=== PATIENT | male | born 1945 | race Caucasian/White ===

== ENCOUNTER 2023-04-17 10:10 | Inpatient (IN) ==
--- NOTE | 2023-04-17 10:43 | Emergency Department Note ---
Impression & Plan Occipital stroke, Peripheral visual field defect ED Provider Note NAME: TIESHA HUDSON Jr AGE: 77 SEX: M : 1945 ARRIVES VIA: Walk-In INFORMANT: Patient, ED PROVIDER(S): Víctor Almanza MD CHIEF COMPLAINT: Vision changes MEDICAL DECISION MAKING: Patient presents due to concern for visual field losses after being seen by optometry and noted to have visual field deficits. IV was established blood work is obtained along with a CT of the head and CT angiography of the head and neck were ordered. Patient was also ordered an MRI of the brain. Patient's MRI of the brain does show cytotoxic edema with associated left occipital infarct. I did speak with on-call neurologist Dr. Pretty stated that he was concerned about the possibility of underlying malignancy. I did initiate a call through the transfer center at [facility] [address] in [place] and updated the patient of the findings. I did speak with a Dr. Recio. After further discussion she believes the likelihood of intervention given the patient's mental status lack of midline shift and other secondary findings to be unlikely. She does not recommend any antiepileptics or steroids. Patient's blood work shows mild leukopenia with a hemoglobin of 14. Platelet count is normal with normal kidney function electrolytes. Urinalysis does not show evidence of blood or infection. CT of the head and CT angiography of the head and neck are otherwise unremarkable with the exception of the noted left occipital infarct. Patient's MR brain also does show other chronic lacunar infarcts. Patient was ordered full dose aspirin. I did speak with the on-call hospitalist service iLlian Guo PA-C and the patient was admitted by Dr. Ramos Prior /Outside records reviewed: Did review a dermatology note from Dr. Amanda from October 2022 which showed inflamed seborrheic keratosis. Differential diagnosis: Stroke, mini stroke, mass, ICH, retinopathy, electrolyte abnormality, dehydration among others were considered. Diagnostics, as interpreted by me: ECG: Sinus bradycardia, rate of 51, normal intervals, left axis deviation, no ST elevations. T wave version in V2. Cardiac monitoring: An order was placed for continuous cardiac monitoring. The monitor shows a rate of 55 with sinus bradycardia rhythm. Patient was placed on pulse oximetry Medical decision rules: None Imaging studies: See below I informally reviewed the patient's MRI which does show left occipital infarct. HPI: Patient presents after being seen by optometry and noted the patient had visual field deficits. The patient states that approximate 5 days ago the patient seem to notice that the right periphery of his right eye vision seem to be less. Patient states that when he was seen today he was noted to have visual deficits in both eyes. The patient does not notice any significant deficits in his left eye. Patient denies any chest pains or shortness of breath no nausea vomiting. Patient states that he does have a known history of heart murmur and has been followed by cardiology and knows that he has a bundle branch block. Patient denies any prior history of stroke or mini stroke. He does relate that preceding his visual changes he has noticed some gait and balance over the last 3 to 4 weeks. Patient does complain of headache and states it is cervical in nature that radiates up through the top of his head. No recent falls or trauma the patient does not take any blood thinning medications. Patient denies any fevers or chills. PAST MEDICAL HISTORY: See Below PAST SURGICAL HISTORY: See Below SOCIAL HISTORY: See Below HOME MEDICATIONS: See Below ALLERGIES: See Below VITALS: See Below PHYSICAL EXAMINATION: GENERAL: NAD, wearing glasses non-toxic. EYE EXAM: Normal conjunctiva. EOM's grossly intact w/o pain. Right-sided visual field deficit at the lower corner of the right eye, no significant field deficits of the left eye, eyes are dilated with stigmata of prior cataract surgery. No periorbital swelling or proptosis. NECK: Supple, no nuchal rigidity, no adenopathy, non-tender. No signs of meningismus. FROM of the neck with good chin to chest and neck extension. No stridor. LUNGS: Clear to auscultation. Normal chest wall mechanics. HEART: NSR, no MRG. ABDOMEN: Abdomen soft, non-tender, no masses, no rebound or guarding. BACK: No CVA TTP. SKIN: No rashes and no bruising. UPPER EXTREMITIES: Upper extremities are grossly normal. LOWER EXTREMITIES: Grossly normal, no edema. NEURO EXAM: A&O x3, cranial nerves II-XII grossly intact, normal speech, moves all 4 extremities. Good [id number]-[id number] and [id number], no sensory deficits, no drift. Past Med/Surg History Medical History BPH (benign prostatic hyperplasia) Inguinal hernia possibly on left Pancreas cyst "BENIGN" Surgical History History of esophagogastroduodenoscopy (EGD) History of left cataract surgery History of tooth extraction Hx of cholecystectomy Hx of colonoscopy with polypectomy Hx of inguinal hernia repair Hx of tonsillectomy Family History Father Coronary heart disease Mother Coronary heart disease Social History Smoking Status: Never smoker Second Hand Exposure: No; Do You Dip or Chew Tobacco: No; Hx Alcohol Use: Yes Alcohol type: beer Hx Substance Use: No Preferred Language: Portuguese Communication Ability: Effective Visual Impairment: No Limitations Supervisor Dumping Required: No Beliefs That Will Affect Care: None Current Living Situation: Spouse Feels Safe at Home: Yes Assistive Devices: Glasses Allergies Allergies Allergy/AdvReac Type Severity Reaction Status Date / Time No Known Allergies Allergy Mild Verified 04/17/23 15:16 Home Meds Home Medications Medication Instructions Recorded Confirmed cholecalciferol (vitamin D3) 25 1,000 unit PO QDL 02/04/19 04/17/23 mcg (1,000 unit) tablet (Vitamin D3) multivitamin 1 tab PO QAM 02/04/19 04/17/23 saw palmetto 500 mg capsule 500 mg PO QAM 02/04/19 04/17/23 latanoprost 0.005 % eye drops 1 drp ophthalmic (eye) PM 09/07/20 04/17/23 Results & Data (ED) Vital Signs Vital Signs - 24 hr 04/17/23 10:11 04/17/23 11:07 04/17/23 11:34 Temperature 36.5 C Temperature Source Temporal Artery Scan Pulse Rate 55 L 57 L 51 L Pulse Rate [Apical] Pulse Rate from SpO2 Sensor 51 L Pulse Rhythm Regular Respiratory Rate 16 16 18 Respiratory Effort / Characteristics Non-Labored Spontaneous Respiratory Depth Normal Respiratory Pattern Regular Blood Pressure 176/84 H Blood Pressure [Right Arm] Blood Pressure Mean 114 Blood Pressure Mean [Right Arm] Pulse Oximetry 98 98 98 Oxygen Delivery Method Room Air Room Air Sepsis Recent Fever Within 48 Hours No Sepsis New/Unexplained Change in Mental Status No Sepsis Action Taken by Nursing No Action Required 04/17/23 11:35 04/17/23 11:35 04/17/23 12:00 Temperature Temperature Source Pulse Rate 53 L Pulse Rate [Apical] Pulse Rate from SpO2 Sensor 52 L Pulse Rhythm Respiratory Rate 18 Respiratory Effort / Characteristics Respiratory Depth Respiratory Pattern Blood Pressure 154/78 H 150/84 H Blood Pressure [Right Arm] Blood Pressure Mean 112 111 Blood Pressure Mean [Right Arm] Pulse Oximetry 99 Oxygen Delivery Method Sepsis Recent Fever Within 48 Hours Sepsis New/Unexplained Change in Mental Status Sepsis Action Taken by Nursing 04/17/23 12:00 04/17/23 12:30 04/17/23 12:30 Temperature Temperature Source Pulse Rate 52 L 49 L Pulse Rate [Apical] Pulse Rate from SpO2 Sensor 52 L 49 L Pulse Rhythm Respiratory Rate 14 13 Respiratory Effort / Characteristics Respiratory Depth Respiratory Pattern Blood Pressure 162/81 H Blood Pressure [Right Arm] Blood Pressure Mean 119 Blood Pressure Mean [Right Arm] Pulse Oximetry 99 99 Oxygen Delivery Method Sepsis Recent Fever Within 48 Hours Sepsis New/Unexplained Change in Mental Status Sepsis Action Taken by Nursing 04/17/23 14:09 04/17/23 15:05 04/17/23 16:26 Temperature Temperature Source Pulse Rate 53 L Pulse Rate [Apical] 50 L 52 L Pulse Rate from SpO2 Sensor Pulse Rhythm Respiratory Rate 19 19 Respiratory Effort / Characteristics Respiratory Depth Normal Respiratory Pattern Blood Pressure Blood Pressure [Right Arm] 151/87 H 151/82 H Blood Pressure Mean Blood Pressure Mean [Right Arm] 108 105 Pulse Oximetry 99 98 Oxygen Delivery Method Room Air Room Air Sepsis Recent Fever Within 48 Hours Sepsis New/Unexplained Change in Mental Status Sepsis Action Taken by Correction Medications Current Medication List: was personally reviewed by me Laboratory Data Attestation: I reviewed the patient's lab results. 04/17/23 11:27 04/17/23 11:27 Lab Results 04/17/23 04/17/23 04/17/23 Range/Units 11:27 11:27 11:27 WBC 4.37 L (4.8-10.8) K/ul RBC 4.44 L (4.70-6.10) M/uL Hgb 14.3 (14.0-18.0) g/dl Hct 41.1 L (42.0-52.0) % MCV 92.6 (80.0-100.0) fL MCH 32.2 (25.0-34.0) pg MCHC 34.8 (32.0-36.0) g/dL RDW Std Deviation 42.2 (36.4-46.3) fL RDW Coeff of Justin 12.4 (11.5-14.5) % Plt Count 161 (130-400) K/uL MPV 12.6 H (9.4-12.4) fL Immature Gran % (Auto) 0.2 % Neut % (Auto) 72.8 % Lymph % (Auto) 18.1 % [place] % (Auto) 7.3 % Eos % (Auto) 0.5 % Baso % (Auto) 1.1 % Neut # (Auto) 3.18 (1.40-6.50) K/uL Lymph # (Auto) 0.79 L (1.2-3.4) K/uL [place] # (Auto) 0.32 (0.11-0.59) K/uL Eos # (Auto) 0.02 (0-0.50) K/uL Baso # (Auto) 0.05 (0-0.2) K/uL Immature Gran # (Auto) 0.01 (0.01-0.20) K/uL Sodium 137 (136-145) mmol/L Potassium 4.3 (3.5-5.1) mmol/L Chloride 105 (98-107) mmol/L Carbon Dioxide 27 (21-32) mmol/L Anion Gap 5 (3-11) BUN 13 (6-23) mg/dl Creatinine 0.75 (0.6-1.4) mg/dl Est Cr Clr Drug Dosing 76.9 ml/min Est GFR ( Amer) 101.1 ml/min Est GFR (Non-Af Amer) 87.2 ml/min BUN/Creatinine Ratio 17.3 (10-20) Glucose 91 (70-99(Fasting)) mg/dl Calcium 8.9 (8.6-10.3) mg/dl Total Bilirubin 0.5 (0.2-1.0) mg/dl AST 21 (13-39) U/L ALT 14 (7-52) U/L Alkaline Phosphatase 70 (34-104) U/L Total Protein 6.6 (6.0-8.3) gm/dl Albumin 3.8 (3.4-5.0) gm/dl Globulin 2.8 (2.5-4.0) gm/dl Albumin/Globulin Ratio 1.4 (0.9-2) TSH 5.333 H (0.300-4.500) uIu/ml Free T4 0.72 (0.61-1.60) ng/dl Urine Color Urine Appearance (Clear) Urine pH (4.5-7.5) Ur Specific [place] (1.000-1.030) Urine Protein (Negative) Urine Glucose (UA) (Negative) Urine Ketones (Negative) Urine Blood (Negative) Urine Nitrite (Negative) Urine Bilirubin (Negative) Urine Urobilinogen (Negative) Ur Leukocyte Esterase (Negative) SARS-CoV-2, RNA, NAAT (NEGATIVE) 04/17/23 04/17/23 Range/Units 11:27 11:44 WBC (4.8-10.8) K/ul RBC (4.70-6.10) M/uL Hgb (14.0-18.0) g/dl Hct (42.0-52.0) % MCV (80.0-100.0) fL MCH (25.0-34.0) pg MCHC (32.0-36.0) g/dL RDW Std Deviation (36.4-46.3) fL RDW Coeff of Justin (11.5-14.5) % Plt Count (130-400) K/uL MPV (9.4-12.4) fL Immature Gran % (Auto) % Neut % (Auto) % Lymph % (Auto) % [place] % (Auto) % Eos % (Auto) % Baso % (Auto) % Neut # (Auto) (1.40-6.50) K/uL Lymph # (Auto) (1.2-3.4) K/uL [place] # (Auto) (0.11-0.59) K/uL Eos # (Auto) (0-0.50) K/uL Baso # (Auto) (0-0.2) K/uL Immature Gran # (Auto) (0.01-0.20) K/uL Sodium (136-145) mmol/L Potassium (3.5-5.1) mmol/L Chloride (98-107) mmol/L Carbon Dioxide (21-32) mmol/L Anion Gap (3-11) BUN (6-23) mg/dl Creatinine (0.6-1.4) mg/dl Est Cr Clr Drug Dosing ml/min Est GFR ( Amer) ml/min Est GFR (Non-Af Amer) ml/min BUN/Creatinine Ratio (10-20) Glucose (70-99(Fasting)) mg/dl Calcium (8.6-10.3) mg/dl Total Bilirubin (0.2-1.0) mg/dl AST (13-39) U/L ALT (7-52) U/L Alkaline Phosphatase (34-104) U/L Total Protein (6.0-8.3) gm/dl Albumin (3.4-5.0) gm/dl Globulin (2.5-4.0) gm/dl Albumin/Globulin Ratio (0.9-2) TSH (0.300-4.500) uIu/ml Free T4 (0.61-1.60) ng/dl Urine Color Dark Yellow Urine Appearance Clear (Clear) Urine pH 7.5 (4.5-7.5) Ur Specific [place] 1.012 (1.000-1.030) Urine Protein Negative (Negative) Urine Glucose (UA) Negative (Negative) Urine Ketones Negative (Negative) Urine Blood Negative (Negative) Urine Nitrite Negative (Negative) Urine Bilirubin Negative (Negative) Urine Urobilinogen Negative (Negative) Ur Leukocyte Esterase Negative (Negative) SARS-CoV-2, RNA, NAAT NEGATIVE (NEGATIVE) Administered Medications Discontinued Medications Dexamethasone Sodium Phosphate (DexamethasonePf 10 Mg/Ml Vial) 10 mg IV NOW ONE Stop: 04/17/23 14:10 Last Admin: 04/17/23 14:24 Dose: 10 mg Documented By: RSL Ioversol (Optiray 320 500ml) 109 ml IV ONCE ONE Stop: 04/17/23 14:01 Last Admin: 04/17/23 13:55 Dose: 109 ml Documented By: BRM Imaging Data Radiologist's Impression: Brain MRI 04/17/23 11:07 MR brain wo con HISTORY: 77 years-old Male bilateral visual field loss, more prom R temporal acute to subacute vision loss COMPARISON: None TECHNIQUE: Multiplanar multisequence MRI of the brain was obtained without the use of IV contrast. FINDINGS: Areas of restricted diffusion within the left occipital lobe measure up to 3.4 x 2.8 cm on image 12 series 4 with smaller adjacent areas of restricted diffusion extending into the optic radiations. Associated increased T2/FLAIR signal within this distribution measures up to 5.8 cm in craniocaudal dimension, image 25 series 6. Decreased signal on the ADC map. Midline structures appear unremarkable. Ill-defined cortically based areas of increased T1 signal also noted within this distribution. No midline shift, abnormal extra axial collection, hydrocephalus or intra-axial mass identified. Subcentimeter chronic lacunar infarcts of the left cerebellum. Mild scattered T2/FLAIR hyperintense foci throughout the white matter. Mild involutional changes. Cerebral venous sinuses and major arterial flow voids appear patent. Prior bilateral lens repair. The mastoid air cells and paranasal sinuses are generally clear. IMPRESSION: 1. Left occipital lobe infarct with associated cytotoxic edema measuring up to 5.8 cm in greatest dimension. The aging of this infarct is likely less than 2 weeks old with subtle areas of laminar necrosis/petechial hemorrhage. 2. Involutional changes with chronic microvascular ischemic disease. 3. Chronic subcentimeter left cerebellar lacunar infarcts. ACT 112: Negative or not required by law. The above report was generated using voice recognition software. It may contain grammatical, syntax or spelling errors. Electronically signed by: Landon Biggs M.D. 04/17/2023 2:01 PM Chest X-Ray 04/17/23 11:07 XR chest 1V portable CLINICAL HISTORY: weakness TECHNIQUE: Single frontal radiograph of the chest was obtained. Comparison: None available at the time of this dictation. FINDINGS: No lines and tubes are seen. Cardiomegaly is noted. The lungs are clear. No evidence of pleural effusion or pneumothorax. IMPRESSION: No acute chest disease. ACT 112: Negative or not required by law. Electronically signed by: Tom Caldera M.D. 04/17/2023 11:[address] 04/17/23 11:[address] OF THE BRAIN; CT ANGIOGRAM OF THE BRAIN; CT ANGIOGRAM OF THE NECK CLINICAL HISTORY: Bilateral visual field deficit. Loss of balance. COMPARISON STUDY: MRI of the brain dated 04/17/2023. TECHNIQUE: Unenhanced axial CT scan of the brain is performed. Subsequently, following the IV administration of 109 of [address] 320, CT angiogram of the head and neck was performed from the aortic arch to the vertex. Images are reviewed in the axial, sagittal, and coronal planes. 3-D MIPS images are created and assessed. IV contrast was administered without complication. All measurements were calculated based on NASCET criteria. A dose lowering technique was utilized adhering to the principles of ALARA. CT DOSE: 1132.55 mGy.cm FINDINGS: Brain parenchyma: There is age-related involutional change noting mild subcortical and periventricular microcatheter hepatic disease. Loss of lópez- white matter differentiation is again seen in the left occipital lobe consistent with a subacute infarct. This water's better assessed on today's MRI. No additional foci of acute ischemia are suspected. There is no hemorrhage or midline shift. There is no evidence of enhancing mass lesion on the angiogram phase images. The ventricles, sulci, and cisterns are prominent secondary to visual changes. No extra-axial fluid collection is seen. Mineralization is noted in the basal ganglia. A small chronic lacunar infarct is noted in the left cerebellar hemisphere. Thoracic aorta: Visualized portions of the thoracic aorta are normal in caliber. The aortic arch demonstrates standard 3-vessel anatomy. Right carotid arterial system: The right common carotid artery is widely patent, as are the right internal and external carotid arteries. Calcified plaque is seen in the carotid bulb. Left carotid arterial system: The left common carotid artery is widely patent, as of the left internal and external carotid arteries. Mild calcified plaque is noted in the carotid bulb. Vertebral arteries: The vertebral arteries are widely patent bilaterally and codominant. Subclavian arteries: Patent bilaterally Atherosclerotic plaque is noted left subclavian artery below the thoracic outlet. Intracranial vasculature: There is moderate atherosclerotic calcification of the cavernous carotid arteries. The internal carotid arteries are patent at the skull base, as are the anterior and middle cerebral arteries bilaterally. The vertebrobasilar system and posterior cerebral arteries are patent. The vertebral arteries are codominant. There is no aneurysm, high-grade stenosis, or focal vessel cut off seen throughout the intracranial circulation. Jugular veins: Patent bilaterally. Dural sinuses: Patent. Lung apices: Partially visualized upper lobe lung parenchyma appears clear. Soft tissues: The visualized pharyngeal soft tissues are normal in appearance noting angiographic phase technique. The oropharyngeal airway appears widely patent. A calcified sialolith is noted in the left parotid gland. The salivary and thyroid glands are otherwise normal in appearance. No cervical lymphadenopathy is seen. Skeletal structures: The skeletal structures are osteopenic. The calvarium appears intact. The cervical spine is maintained noting mild multilevel spondylosis. No lytic or blastic lesion is seen. Orbits: The bony orbits are intact. Orbital contents are normal as visualized noting bilateral ocular lens implants. Sinuses and mastoids: There is trace mucosal thickening within the maxillary antra. A 2.3 cm retention cyst is noted on the right. The remaining paranasal sinuses are clear. The mastoid air cells are well pneumatized. IMPRESSION: 1. A subacute left occipital lobe infarct is again noted. 2. No additional foci of acute ischemia are suspected. There is no hemorrhage or midline shift. 3. Unremarkable CT angiogram of the brain. 4. Unremarkable CT angiogram of the neck. ACT 112: Negative or not required by law. Electronically signed by: Ousmane Odonnell M.D. 04/17/2023 2:17 PM Head CTA 04/17/23 11:[address] OF THE BRAIN; CT ANGIOGRAM OF THE BRAIN; CT ANGIOGRAM OF THE NECK CLINICAL HISTORY: Bilateral visual field deficit. Loss of balance. COMPARISON STUDY: MRI of the brain dated 04/17/2023. TECHNIQUE: Unenhanced axial CT scan of the brain is performed. Subsequently, following the IV administration of 109 of [address] 320, CT angiogram of the head and neck was performed from the aortic arch to the vertex. Images are reviewed in the axial, sagittal, and coronal planes. 3-D MIPS images are created and assessed. IV contrast was administered without complication. All measurements were calculated based on NASCET criteria. A dose lowering technique was utilized adhering to the principles of ALARA. CT DOSE: 1132.55 mGy.cm FINDINGS: Brain parenchyma: There is age-related involutional change noting mild subcortical and periventricular microcatheter hepatic disease. Loss of lópez- white matter differentiation is again seen in the left occipital lobe consistent with a subacute infarct. This water's better assessed on today's MRI. No additional foci of acute ischemia are suspected. There is no hemorrhage or midline shift. There is no evidence of enhancing mass lesion on the angiogram phase images. The ventricles, sulci, and cisterns are prominent secondary to visual changes. No extra-axial fluid collection is seen. Mineralization is noted in the basal ganglia. A small chronic lacunar infarct is noted in the left cerebellar hemisphere. Thoracic aorta: Visualized portions of the thoracic aorta are normal in caliber. The aortic arch demonstrates standard 3-vessel anatomy. Right carotid arterial system: The right common carotid artery is widely patent, as are the right internal and external carotid arteries. Calcified plaque is seen in the carotid bulb. Left carotid arterial system: The left common carotid artery is widely patent, as of the left internal and external carotid arteries. Mild calcified plaque is noted in the carotid bulb. Vertebral arteries: The vertebral arteries are widely patent bilaterally and codominant. Subclavian arteries: Patent bilaterally Atherosclerotic plaque is noted left subclavian artery below the thoracic outlet. Intracranial vasculature: There is moderate atherosclerotic calcification of the cavernous carotid arteries. The internal carotid arteries are patent at the skull base, as are the anterior and middle cerebral arteries bilaterally. The vertebrobasilar system and posterior cerebral arteries are patent. The vertebral arteries are codominant. There is no aneurysm, high-grade stenosis, or focal vessel cut off seen throughout the intracranial circulation. Jugular veins: Patent bilaterally. Dural sinuses: Patent. Lung apices: Partially visualized upper lobe lung parenchyma appears clear. Soft tissues: The visualized pharyngeal soft tissues are normal in appearance noting angiographic phase technique. The oropharyngeal airway appears widely patent. A calcified sialolith is noted in the left parotid gland. The salivary and thyroid glands are otherwise normal in appearance. No cervical lymphadenopathy is seen. Skeletal structures: The skeletal structures are osteopenic. The calvarium appears intact. The cervical spine is maintained noting mild multilevel spondylosis. No lytic or blastic lesion is seen. Orbits: The bony orbits are intact. Orbital contents are normal as visualized noting bilateral ocular lens implants. Sinuses and mastoids: There is trace mucosal thickening within the maxillary antra. A 2.3 cm retention cyst is noted on the right. The remaining paranasal sinuses are clear. The mastoid air cells are well pneumatized. IMPRESSION: 1. A subacute left occipital lobe infarct is again noted. 2. No additional foci of acute ischemia are suspected. There is no hemorrhage or midline shift. 3. Unremarkable CT angiogram of the brain. 4. Unremarkable CT angiogram of the neck. ACT 112: Negative or not required by law. Electronically signed by: Ousmane Odonnell M.D. 04/17/2023 2:17 PM Neck CTA 04/17/23 11:[address] OF THE BRAIN; CT ANGIOGRAM OF THE BRAIN; CT ANGIOGRAM OF THE NECK CLINICAL HISTORY: Bilateral visual field deficit. Loss of balance. COMPARISON STUDY: MRI of the brain dated 04/17/2023. TECHNIQUE: Unenhanced axial CT scan of the brain is performed. Subsequently, following the IV administration of 109 of [address] 320, CT angiogram of the head and neck was performed from the aortic arch to the vertex. Images are reviewed in the axial, sagittal, and coronal planes. 3-D MIPS images are created and assessed. IV contrast was administered without complication. All measurements were calculated based on NASCET criteria. A dose lowering technique was utilized adhering to the principles of ALARA. CT DOSE: 1132.55 mGy.cm FINDINGS: Brain parenchyma: There is age-related involutional change noting mild subcortical and periventricular microcatheter hepatic disease. Loss of lópez- white matter differentiation is again seen in the left occipital lobe consistent with a subacute infarct. This water's better assessed on today's MRI. No additional foci of acute ischemia are suspected. There is no hemorrhage or midline shift. There is no evidence of enhancing mass lesion on the angiogram phase images. The ventricles, sulci, and cisterns are prominent secondary to visual changes. No extra-axial fluid collection is seen. Mineralization is noted in the basal ganglia. A small chronic lacunar infarct is noted in the left cerebellar hemisphere. Thoracic aorta: Visualized portions of the thoracic aorta are normal in caliber. The aortic arch demonstrates standard 3-vessel anatomy. Right carotid arterial system: The right common carotid artery is widely patent, as are the right internal and external carotid arteries. Calcified plaque is seen in the carotid bulb. Left carotid arterial system: The left common carotid artery is widely patent, as of the left internal and external carotid arteries. Mild calcified plaque is noted in the carotid bulb. Vertebral arteries: The vertebral arteries are widely patent bilaterally and codominant. Subclavian arteries: Patent bilaterally Atherosclerotic plaque is noted left subclavian artery below the thoracic outlet. Intracranial vasculature: There is moderate atherosclerotic calcification of the cavernous carotid arteries. The internal carotid arteries are patent at the skull base, as are the anterior and middle cerebral arteries bilaterally. The vertebrobasilar system and posterior cerebral arteries are patent. The vertebral arteries are codominant. There is no aneurysm, high-grade stenosis, or focal vessel cut off seen throughout the intracranial circulation. Jugular veins: Patent bilaterally. Dural sinuses: Patent. Lung apices: Partially visualized upper lobe lung parenchyma appears clear. Soft tissues: The visualized pharyngeal soft tissues are normal in appearance noting angiographic phase technique. The oropharyngeal airway appears widely patent. A calcified sialolith is noted in the left parotid gland. The salivary and thyroid glands are otherwise normal in appearance. No cervical lymphadenopathy is seen. Skeletal structures: The skeletal structures are osteopenic. The calvarium appears intact. The cervical spine is maintained noting mild multilevel spondylosis. No lytic or blastic lesion is seen. Orbits: The bony orbits are intact. Orbital contents are normal as visualized noting bilateral ocular lens implants. Sinuses and mastoids: There is trace mucosal thickening within the maxillary antra. A 2.3 cm retention cyst is noted on the right. The remaining paranasal sinuses are clear. The mastoid air cells are well pneumatized. IMPRESSION: 1. A subacute left occipital lobe infarct is again noted. 2. No additional foci of acute ischemia are suspected. There is no hemorrhage or midline shift. 3. Unremarkable CT angiogram of the brain. 4. Unremarkable CT angiogram of the neck. ACT 112: Negative or not required by law. Electronically signed by: Ousmane Odonnell M.D. 04/17/2023 2:17 PM Discharge Plan Visit Data Chief Complaint: Visual Disturbance Stated Complaint: PERIPHERAL VISION LOSS, BALANCE ISSUES ED Provider: Víctor Almanza Discharge Problem: Occipital stroke, Peripheral visual field defect Forms Stand Alone Forms: [facility] [employer] Prescriptions Prescriptions: No Action latanoprost 0.005 % Drops 1 drp OPHTHALMIC (EYE) PM multivitamin Tablet 1 tab PO QAM saw palmetto 500 mg Capsule 500 mg PO QAM cholecalciferol (vitamin D3) [Vitamin D3] 1,000 unit Tablet 1,000 unit PO QDL Referrals Referrals: Dixon Douglas MD [Outside Practitioners] -
--- NOTE | 2023-04-17 11:42 | XRay Report ---
XR chest 1V portable CLINICAL HISTORY: weakness TECHNIQUE: Single frontal radiograph of the chest was obtained. Comparison: None available at the time of this dictation. FINDINGS: No lines and tubes are seen. Cardiomegaly is noted. The lungs are clear. No evidence of pleural effus ion or pneumothorax. IMPRESSION: No acute chest disease. ACT 112: Negative or not required by law. Electronically signed by: Tom Caldera M.D. 04/17/2023 11:40 AM
[2023-04-17 11:46] LABS: Appearance Urine Clear (Clear); Bilirubin Urine Negative (Negative); Blood Urine Negative (Negative); Color Urine Dark Yellow; Glucose Urine UA Negative (Negative); Ketones Urine Negative (Negative); Leukocyte Esterase Urine Negative (Negative); Nitrite Urine Negative (Negative); Protein Urine Negative (Negative); Specific Gravity Urine 1.012 (1.000-1.030); Urobilinogen Urine Negative (Negative); pH Urine 7.5 (4.5-7.5)
[2023-04-17 12:04] LABS: Basophils # (auto) 0.05 K/uL (0-0.2); Basophils % (auto) 1.1 %; Eosinophils # (auto) 0.02 K/uL (0-0.50); Eosinophils % (auto) 0.5 %; Hematocrit (blood only) 41.1 % (42.0-52.0); Hemoglobin 14.3 g/dl (14.0-18.0); Immature Granulocytes # (auto) 0.01 K/uL (0.01-0.20); Immature Granulocytes % (auto) 0.2 %; Lymphocytes # (auto) 0.79 K/uL (1.2-3.4); Lymphocytes % (auto) 18.1 %; Mean Corpuscular Hemoglobin 32.2 pg (25.0-34.0); Mean Corpuscular Hgb Conc 34.8 g/dL (32.0-36.0); Mean Corpuscular Volume 92.6 fL (80.0-100.0); Mean Platelet Volume 12.6 fL (9.4-12.4); Monocytes # (auto) 0.32 K/uL (0.11-0.59); Monocytes % (auto) 7.3 %; Neutrophils # (auto) 3.18 K/uL (1.40-6.50); Neutrophils % (auto) 72.8 %; Platelet Count 161 K/uL (130-400); RDW Coefficient of Variation 12.4 % (11.5-14.5); RDW Standard Deviation 42.2 fL (36.4-46.3); Red Blood Count 4.44 M/uL (4.70-6.10); White Blood Count 4.37 K/ul (4.8-10.8)
[2023-04-17 12:17] LABS: Albumin Globulin Ratio 1.4 (0.9-2); Albumin Level 3.8 gm/dl (3.4-5.0); BUN Creatinine Ratio 17.3 (10-20); Bilirubin,Total 0.5 mg/dl (0.2-1.0); Calcium 8.9 mg/dl (8.6-10.3); Creatinine Clr Calc Pharmacy 76.9 ml/min; Est GFR (African American) 101.1 ml/min; Est GFR (Non-African American) 87.2 ml/min; Globulin 2.8 gm/dl (2.5-4.0); Potassium 4.3 mmol/L (3.5-5.1); Total Protein 6.6 gm/dl (6.0-8.3)
[2023-04-17 12:24] LABS: Thyroid Stimulating Hormone 5.333 uIu/ml (0.300-4.500)
[2023-04-17 12:57] LABS: T4 Free Thyroxine 0.72 ng/dl (0.61-1.60)
[2023-04-17] MEDS ORDERED: OPTIRAY 320 500ml IV ONE (14:00)
--- NOTE | 2023-04-17 14:02 | Magnetic Resonance Report ---
MR brain wo con HISTORY: 77 years-old Male bilateral visual field loss, more prom R temporal acute to subacute visio n loss COMPARISON: None TECHNIQUE: Multiplanar multisequence MRI of the brain was obtained without the use of IV contrast. FINDINGS: Areas of restricted diffusion within the left occipital lobe measure up to 3.4 x 2.8 cm on image 12 s eries 4 with smaller adjacent areas of restricted diffusion extending into the optic radiations. Asso ciated increased T2/FLAIR signal within this distribution measures up to 5.8 cm in craniocaudal dimen adelina, image 25 series 6. Decreased signal on the ADC map. Midline structures appear unremarkable. Ill -defined cortically based areas of increased T1 signal also noted within this distribution. No midline shift, abnormal extra axial collection, hydrocephalus or intra-axial mass identified. Subc entimeter chronic lacunar infarcts of the left cerebellum. Mild scattered T2/FLAIR hyperintense foci throughout the white matter. Mild involutional changes. Cerebral venous sinuses and major arterial flow voids appear patent. Prior bilateral lens repair. The mastoid air cells and paranasal sinuses are generally clear. IMPRESSION: 1. Left occipital lobe infarct with associated cytotoxic edema measuring up to 5.8 cm in greatest dim ension. The aging of this infarct is likely less than 2 weeks old with subtle areas of laminar necros is/petechial hemorrhage. 2. Involutional changes with chronic microvascular ischemic disease. 3. Chronic subcentimeter left cerebellar lacunar infarcts. ACT 112: Negative or not required by law. The above report was generated using voice recognition software. It may contain grammatical, syntax o r spelling errors. Electronically signed by: Landon Biggs M.D. 04/17/2023 2:01 PM
[2023-04-17] MEDS ORDERED: dexAMETHasone**PF** 10 MG/ML VIAL IV ONE (14:09)
--- NOTE | 2023-04-17 14:18 | CT Scan Report ---
UNENHANCED CT OF THE BRAIN; CT ANGIOGRAM OF THE BRAIN; CT ANGIOGRAM OF THE NECK CLINICAL HISTORY: Bilateral visual field deficit. Loss of balance. COMPARISON STUDY: MRI of the brain dated 04/17/2023. TECHNIQUE: Unenhanced axial CT scan of the brain is performed. Subsequently, following the IV adminis tration of 109 of [address] 320, CT angiogram of the head and neck was performed from the aortic arch t o the vertex. Images are reviewed in the axial, sagittal, and coronal planes. 3-D MIPS images are cre ated and assessed. IV contrast was administered without complication. All measurements were calculate d based on NASCET criteria. A dose lowering technique was utilized adhering to the principles of ALA RA. CT DOSE: 1132.55 mGy.cm FINDINGS: Brain parenchyma: There is age-related involutional change noting mild subcortical and periventricula r microcatheter hepatic disease. Loss of lópez-white matter differentiation is again seen in the left occipital lobe consistent with a subacute infarct. This water's better assessed on today's MRI. No ad ditional foci of acute ischemia are suspected. There is no hemorrhage or midline shift. There is no e vidence of enhancing mass lesion on the angiogram phase images. The ventricles, sulci, and cisterns a re prominent secondary to visual changes. No extra-axial fluid collection is seen. Mineralization is noted in the basal ganglia. A small chronic lacunar infarct is noted in the left cerebellar hemispher e. Thoracic aorta: Visualized portions of the thoracic aorta are normal in caliber. The aortic arch demo nstrates standard 3-vessel anatomy. Right carotid arterial system: The right common carotid artery is widely patent, as are the right int ernal and external carotid arteries. Calcified plaque is seen in the carotid bulb. Left carotid arterial system: The left common carotid artery is widely patent, as of the left interna l and external carotid arteries. Mild calcified plaque is noted in the carotid bulb. Vertebral arteries: The vertebral arteries are widely patent bilaterally and codominant. Subclavian arteries: Patent bilaterally Atherosclerotic plaque is noted left subclavian artery below the thoracic outlet. Intracranial vasculature: There is moderate atherosclerotic calcification of the cavernous carotid ar teries. The internal carotid arteries are patent at the skull base, as are the anterior and middle ce rebral arteries bilaterally. The vertebrobasilar system and posterior cerebral arteries are patent. T he vertebral arteries are codominant. There is no aneurysm, high-grade stenosis, or focal vessel cut off seen throughout the intracranial circulation. Jugular veins: Patent bilaterally. Dural sinuses: Patent. Lung apices: Partially visualized upper lobe lung parenchyma appears clear. Soft tissues: The visualized pharyngeal soft tissues are normal in appearance noting angiographic pha se technique. The oropharyngeal airway appears widely patent. A calcified sialolith is noted in the l eft parotid gland. The salivary and thyroid glands are otherwise normal in appearance. No cervical ly mphadenopathy is seen. Skeletal structures: The skeletal structures are osteopenic. The calvarium appears intact. The cervic al spine is maintained noting mild multilevel spondylosis. No lytic or blastic lesion is seen. Orbits: The bony orbits are intact. Orbital contents are normal as visualized noting bilateral ocular lens implants. Sinuses and mastoids: There is trace mucosal thickening within the maxillary antra. A 2.3 cm retentio n cyst is noted on the right. The remaining paranasal sinuses are clear. The mastoid air cells are we ll pneumatized. IMPRESSION: 1. A subacute left occipital lobe infarct is again noted. 2. No additional foci of acute ischemia are suspected. There is no hemorrhage or midline shift. 3. Unremarkable CT angiogram of the brain. 4. Unremarkable CT angiogram of the neck. ACT 112: Negative or not required by law. Electronically signed by: Ousmane Odonnell M.D. 04/17/2023 2:17 PM
--- NOTE | 2023-04-17 16:52 | History & Physical Report ---
Date of Service April 17, 2023 Assessment & Plan (1) Occipital stroke: Plan: 77-year-old male who has significant past medical history of aortic root dilatation, mild mitral regurgitation, hypothyroidism, GERD, BPH, cervical DDD, and bilateral primary open-angle glaucoma who presents to ED secondary to visual changesfor several days with associated difficulties with balance and posterior HERRERA. Seen by optometry outpatient today and noted to have bilateral visual field deficits so referred to the ED for evaluation. Imaging in the ED c/w subacute left occipital lobe infarct with associated cytotoxic edema measuring up to 5.8 cm in greatest dimension (MRI personally reviewed). Received dexamethasone x 1 dose in the ED. ED provider spoke with [place] [facility] [place] potential intervention required that would warrant transfer - provider stated no need for transfer at this time, no need for additional IV steroids or for antiepileptics. Edema all thought secondary to infarct/necrosis. Pt reports a history of frequent PACs as an outpatient and concern for possible PAF previously though never documented. - Admit to PCU - monitor for possible paroxysmal atrial fibrillation as etiology for possible embolic CVA with hx of frequent PACs. - Consult neurology - Neuro checks Q4 hours - PT/OT evaluation, fall precautions - Check ECHO (last in Oct 2022) - Aspirin given in the ED - will continue 81 mg daily. Defer to neurology if dual antiplatelet therapy appropriate for this pt in view of imaging findings, concern for petechial hemorrhage on report - Lipid panel, A1c in AM - Daily labs (2) Peripheral visual field defect: (3) Aortic root dilatation: (4) Mitral regurgitation: (5) Primary open angle glaucoma: Plan: Continue outpatient drops (6) Cervical disc disease: (7) BPH (benign prostatic hyperplasia): Plan: Continue saw [place] - outpatient f/u with urology per PCP Plan Pt seen and reviewed with collaborating physician, Dr. Ramos. Plan of care discussed and as outlined above. Code Status: Full code DVT prophylaxis: SCDs due to concern for petechial hemorrhage on MRI brain Deacon Guo PA-C History of Present Illness Chief Complaint: visual deficits x 5 days Primary Care Provider: Murphy Craig DO This is a 77-year-old male who has significant past medical history of aortic ro ot dilatation, mild mitral regurgitation, GERD, BPH, cervical DDD, and bilateral primary open-angle glaucoma who presents to ED secondary to visual changes for several days. Over the last two weeks, he has noticed issues with his balance, specifically hitting his right side when he was going around corners in his apartment. Over the weekend, he noted a right visual field defect which he initially thought was due to know open angle glaucoma so made an appt with optometry today. When he was seen by optometry today, they noted bilaterally visual field deficits so referred to the ED. Patient has noticed the right periphery of his eye seem to be worse. He does not notice any deficit to his left eye although it was noted on outpatient exam today. He denies any prior history of stroke or TIA. He has also noted a posterior headache for the last several days, which he attributed to known cervical disc disease. However, in hindsight, he thinks this may also have been related to the vision deficits and balance issues. In the ED, patient remained hemodynamically stable. Initial head CT concerning for subacute left occipital lobe infarct. He underwent CTA of head and neck which was unremarkable. Brain MRI was performed which revealed left occipital lobe infarct with associated cytotoxic edema measuring up to 5.8 cm in greatest dimension. The appearance of his infarct is likely less than 2 weeks old with subtle areas of laminar necrosis/petechial hemorrhage. Involutional change of chronic microvascular ischemic disease is also noted. Chronic subcentimeter left cerebellar lacunar infarct also noted. At baseline, he is extremely active - went for a 20 mile bike ride over the weekend, walks two miles a day. He is a vegetarian, eats healthy. Denies smoking, alcohol. Echo Oct 2022 - LVEF 60-64% with normal wall motion; mild LAE, grade I LV diastolic dysfunction; mild aortic valve sclerosis but no aortic stenosis; focal thickening of anterior MV leaflet with mild MR but no MS; mild TR. Allergies Allergy/AdvReac Type Severity Reaction Status Date / Time No Known Allergies Allergy Mild Verified 04/17/23 15:16 Home Medications Medication Instructions Recorded Confirmed Type cholecalciferol (vitamin D3) 25 1,000 unit PO QDL 02/04/19 04/17/23 History mcg (1,000 unit) tablet (Vitamin D3) multivitamin 1 tab PO QAM 02/04/19 04/17/23 History saw palmetto 500 mg capsule 500 mg PO QAM 02/04/19 04/17/23 History latanoprost 0.005 % eye drops 1 drp ophthalmic (eye) PM 09/07/20 04/17/23 History Past Med/Surg History Medical History Aortic root dilatation BPH (benign prostatic hyperplasia) Cervical disc disease GERD without esophagitis Inguinal hernia possibly on left Mitral regurgitation Pancreas cyst "BENIGN" Primary open angle glaucoma Surgical History History of esophagogastroduodenoscopy (EGD) History of left cataract surgery History of tooth extraction Hx of cholecystectomy Hx of colonoscopy with polypectomy Hx of inguinal hernia repair Hx of tonsillectomy Family History Father Coronary heart disease Mother Coronary heart disease Social History (Updated 04/17/23 @ 19:32 by Lynn Guo PA-C) Smoking Status: Never smoker Second Hand Exposure: No; Do You Dip or Chew Tobacco: No; Hx Alcohol Use: No Hx Substance Use: No Preferred Language: Albanian Communication Ability: Effective Visual Impairment: No Limitations Taxicab Starter Required: No Beliefs That Will Affect Care: None Current Living Situation: Spouse current occupational status: retired 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 Feels Safe at Home: Yes Diet: vegetarian Assistive Devices: Glasses Review of Systems Review of Systems: All systems reviewed & are unremarkable except as noted in HPI & below Constitutional: no fever, no chills, no fatigue and no weight loss Eyes: as per Subjective / HPI Ear, Nose, Mouth, Throat: no nasal congestion, no sore throat and no dysphagia Respiratory: no cough and no dyspnea Cardiovascular: no chest pain, no palpitations, no syncope and no edema Gastrointestinal: no abdominal pain, no nausea, no vomiting, no change in bowel habits and no blood in stools Genitourinary: + nocturia; no dysuria or no hematuria Musculoskeletal: + neck pain; no back pain Integumentary: no yellowing of the skin Neurologic: + headache(s); no falls, no paresthesia and no seizure-like ac tivity Psychiatric: no depression and no anxiety Physical Exam Constitutional: well developed and well nourished; no acute distress Eyes: + anicteric sclerae, PERRL and EOM intact bilaterally right peripheral visual field deficit - LQ > UQ ENMT: external ear and nose normal, oropharynx normal Neck: trachea midline Respiratory: no respiratory distress and no labored breathing Auscultation: lungs clear to auscultation bilaterally; no rales, no rhonchi and no wheezes Cardiovascular: Rate/Rhythm: regular rate and regular rhythm Heart Sounds: + murmur Vessels: dorsalis pedis pulses present and radial pulses present Extremities: no pedal edema Gastrointestinal (Abdomen): Inspection/Auscultation: normal bowel sounds; abdomen not distended Percussion/Palpation: abdomen soft; abdomen nontender Musculoskeletal: Head/Neck/Chest: normocephalic, head atraumatic and neck supple Skin: no jaundice Neurologic: moves all extremities; no focal motor deficits and not confused Speech / Cognition: normal speech Motor/Sensory: no tremor Cranial Nerves: PERRL, normal accommodation, EOM intact bilaterally, normal facial strength, tongue midline, able to rotate head bilaterally and able to elevate shoulders bilaterally Psychiatric: A+Ox3, euthymic affect Results & Data Results & Data Vital Signs (Past 12 Hours) Vital Signs Temp Pulse Pulse Resp BP BP Pulse Ox 04/17/23 16:26 52 L 19 151/82 H 98 04/17/23 15:05 50 L 19 151/87 H 99 04/17/23 14:09 53 L 04/17/23 12:30 49 L 13 99 04/17/23 12:30 162/81 H 04/17/23 12:00 52 L 14 99 04/17/23 12:00 150/84 H 04/17/23 11:35 154/78 H 04/17/23 11:35 53 L 18 99 04/17/23 11:34 51 L 18 98 04/17/23 11:07 57 L 16 98 04/17/23 10:11 36.5 C 55 L 16 176/84 H 98 O2 Del Method 04/17/23 16:26 Room Air 04/17/23 15:05 Room Air 04/17/23 14:09 04/17/23 12:30 04/17/23 12:30 04/17/23 12:00 04/17/23 12:00 04/17/23 11:35 04/17/23 11:35 04/17/23 11:34 04/17/23 11:07 Room Air 04/17/23 10:11 Room Air Laboratory Results Laboratory Results - last 24 hr 04/17/23 04/17/23 04/17/23 11:27 11:27 11:27 WBC 4.37 L RBC 4.44 L Hgb 14.3 Hct 41.1 L MCV 92.6 MCH 32.2 MCHC 34.8 RDW Std Deviation 42.2 RDW Coeff of Justin 12.4 Plt Count 161 MPV 12.6 H Immature Gran % (Auto) 0.2 Neut % (Auto) 72.8 Lymph % (Auto) 18.1 [place] % (Auto) 7.3 Eos % (Auto) 0.5 Baso % (Auto) 1.1 Neut # (Auto) 3.18 Lymph # (Auto) 0.79 L [place] # (Auto) 0.32 Eos # (Auto) 0.02 Baso # (Auto) 0.05 Immature Gran # (Auto) 0.01 Sodium 137 Potassium 4.3 Chloride 105 Carbon Dioxide 27 Anion Gap 5 BUN 13 Creatinine 0.75 Est Cr Clr Drug Dosing 76.9 Est GFR ( Amer) 101.1 Est GFR (Non-Af Amer) 87.2 BUN/Creatinine Ratio 17.3 Glucose 91 Calcium 8.9 Total Bilirubin 0.5 AST 21 ALT 14 Alkaline Phosphatase 70 Total Protein 6.6 Albumin 3.8 Globulin 2.8 Albumin/Globulin Ratio 1.4 TSH 5.333 H Free T4 0.72 Urine Color Urine Appearance Urine pH Ur Specific [place] Urine Protein Urine Glucose (UA) Urine Ketones Urine Blood Urine Nitrite Urine Bilirubin Urine Urobilinogen Ur Leukocyte Esterase SARS-CoV-2, RNA, NAAT 04/17/23 04/17/23 11:27 11:44 WBC RBC Hgb Hct MCV MCH MCHC RDW Std Deviation RDW Coeff of Justin Plt Count MPV Immature Gran % (Auto) Neut % (Auto) Lymph % (Auto) [place] % (Auto) Eos % (Auto) Baso % (Auto) Neut # (Auto) Lymph # (Auto) [place] # (Auto) Eos # (Auto) Baso # (Auto) Immature Gran # (Auto) Sodium Potassium Chloride Carbon Dioxide Anion Gap BUN Creatinine Est Cr Clr Drug Dosing Est GFR ( Amer) Est GFR (Non-Af Amer) BUN/Creatinine Ratio Glucose Calcium Total Bilirubin AST ALT Alkaline Phosphatase Total Protein Albumin Globulin Albumin/Globulin Ratio TSH Free T4 Urine Color Dark Yellow Urine Appearance Clear Urine pH 7.5 Ur Specific [place] 1.012 Urine Protein Negative Urine Glucose (UA) Negative Urine Ketones Negative Urine Blood Negative Urine Nitrite Negative Urine Bilirubin Negative Urine Urobilinogen Negative Ur Leukocyte Esterase Negative SARS-CoV-2, RNA, NAAT NEGATIVE Diagnostic Findings Brain MRI 04/17/23 11:07 MR brain wo con HISTORY: 77 years-old Male bilateral visual field loss, more prom R temporal acute to subacute vision loss COMPARISON: None TECHNIQUE: Multiplanar multisequence MRI of the brain was obtained without the use of IV contrast. FINDINGS: Areas of restricted diffusion within the left occipital lobe measure up to 3.4 x 2.8 cm on image 12 series 4 with smaller adjacent areas of restricted diffusion extending into the optic radiations. Associated increased T2/FLAIR signal within this distribution measures up to 5.8 cm in craniocaudal dimension, image 25 series 6. Decreased signal on the ADC map. Midline structures appear unremarkable. Ill-defined cortically based areas of increased T1 signal also noted within this distribution. No midline shift, abnormal extra axial collection, hydrocephalus or intra-axial mass identified. Subcentimeter chronic lacunar infarcts of the left cerebellum. Mild scattered T2/FLAIR hyperintense foci throughout the white matter. Mild involutional changes. Cerebral venous sinuses and major arterial flow voids appear patent. Prior bilateral lens repair. The mastoid air cells and paranasal sinuses are generally clear. IMPRESSION: 1. Left occipital lobe infarct with associated cytotoxic edema measuring up to 5.8 cm in greatest dimension. The aging of this infarct is likely less than 2 we eks old with subtle areas of laminar necrosis/petechial hemorrhage. 2. Involutional changes with chronic microvascular ischemic disease. 3. Chronic subcentimeter left cerebellar lacunar infarcts. ACT 112: Negative or not required by law. The above report was generated using voice recognition software. It may contain grammatical, syntax or spelling errors. Electronically signed by: Landon Biggs M.D. 04/17/2023 2:01 PM Chest X-Ray 04/17/23 11:07 XR chest 1V portable CLINICAL HISTORY: weakness TECHNIQUE: Single frontal radiograph of the chest was obtained. Comparison: None available at the time of this dictation. FINDINGS: No lines and tubes are seen. Cardiomegaly is noted. The lungs are clear. No evidence of pleural effusion or pneumothorax. IMPRESSION: No acute chest disease. ACT 112: Negative or not required by law. Electronically signed by: Tom Caldera M.D. 04/17/2023 11:[address] 04/17/23 11:[address] OF THE BRAIN; CT ANGIOGRAM OF THE BRAIN; CT ANGIOGRAM OF THE NECK CLINICAL HISTORY: Bilateral visual field deficit. Loss of balance. COMPARISON STUDY: MRI of the brain dated 04/17/2023. TECHNIQUE: Unenhanced axial CT scan of the brain is performed. Subsequently, following the IV administration of 109 of [address] 320, CT angiogram of the head and neck was performed from the aortic arch to the vertex. Images are reviewed in the axial, sagittal, and coronal planes. 3-D MIPS images are created and assessed. IV contrast was administered without complication. All measurements were calculated based on NASCET criteria. A dose lowering technique was utilized adhering to the principles of ALARA. CT DOSE: 1132.55 mGy.cm FINDINGS: Brain parenchyma: There is age-related involutional change noting mild subcortical and periventricular microcatheter hepatic disease. Loss of lópez- white matter differentiation is again seen in the left occipital lobe consistent with a subacute infarct. This water's better assessed on today's MRI. No additional foci of acute ischemia are suspected. There is no hemorrhage or midline shift. There is no evidence of enhancing mass lesion on the angiogram phase images. The ventricles, sulci, and cisterns are prominent secondary to visual changes. No extra-axial fluid collection is seen. Mineralization is noted in the basal ganglia. A small chronic lacunar infarct is noted in the left cerebellar hemisphere. Thoracic aorta: Visualized portions of the thoracic aorta are normal in caliber. The aortic arch demonstrates standard 3-vessel anatomy. Right carotid arterial system: The right common carotid artery is widely patent, as are the right internal and external carotid arteries. Calcified plaque is seen in the carotid bulb. Left carotid arterial system: The left common carotid artery is widely patent, as of the left internal and external carotid arteries. Mild calcified plaque is noted in the carotid bulb. Vertebral arteries: The vertebral arteries are widely patent bilaterally and codominant. Subclavian arteries: Patent bilaterally Atherosclerotic plaque is noted left subclavian artery below the thoracic outlet. Intracranial vasculature: There is moderate atherosclerotic calcification of the cavernous carotid arteries. The internal carotid arteries are patent at the skull base, as are the anterior and middle cerebral arteries bilaterally. The vertebrobasilar system and posterior cerebral arteries are patent. The vertebral arteries are codominant. There is no aneurysm, high-grade stenosis, or focal vessel cut off seen throughout the intracranial circulation. Jugular veins: Patent bilaterally. Dural sinuses: Patent. Lung apices: Partially visualized upper lobe lung parenchyma appears clear. Soft tissues: The visualized pharyngeal soft tissues are normal in appearance noting angiographic phase technique. The oropharyngeal airway appears widely patent. A calcified sialolith is noted in the left parotid gland. The salivary and thyroid glands are otherwise normal in appearance. No cervical lymphadenopathy is seen. Skeletal structures: The skeletal structures are osteopenic. The calvarium appears intact. The cervical spine is maintained noting mild multilevel spondylosis. No lytic or blastic lesion is seen. Orbits: The bony orbits are intact. Orbital contents are normal as visualized noting bilateral ocular lens implants. Sinuses and mastoids: There is trace mucosal thickening within the maxillary antra. A 2.3 cm retention cyst is noted on the right. The remaining paranasal sinuses are clear. The mastoid air cells are well pneumatized. IMPRESSION: 1. A subacute left occipital lobe infarct is again noted. 2. No additional foci of acute ischemia are suspected. There is no hemorrhage or midline shift. 3. Unremarkable CT angiogram of the brain. 4. Unremarkable CT angiogram of the neck. ACT 112: Negative or not required by law. Electronically signed by: Ousmane Odonnell M.D. 04/17/2023 2:17 PM Head CTA 04/17/23 11:[address] OF THE BRAIN; CT ANGIOGRAM OF THE BRAIN; CT ANGIOGRAM OF THE NECK CLINICAL HISTORY: Bilateral visual field deficit. Loss of balance. COMPARISON STUDY: MRI of the brain dated 04/17/2023. TECHNIQUE: Unenhanced axial CT scan of the brain is performed. Subsequently, following the IV administration of 109 of [address] 320, CT angiogram of the head and neck was performed from the aortic arch to the vertex. Images are reviewed in the axial, sagittal, and coronal planes. 3-D MIPS images are created and assessed. IV contrast was administered without complication. All measurements were calculated based on NASCET criteria. A dose lowering technique was utilized adhering to the principles of ALARA. CT DOSE: 1132.55 mGy.cm FINDINGS: Brain parenchyma: There is age-related involutional change noting mild subcortical and periventricular microcatheter hepatic disease. Loss of lópez- white matter differentiation is again seen in the left occipital lobe consistent with a subacute infarct. This water's better assessed on today's MRI. No additional foci of acute ischemia are suspected. There is no hemorrhage or midline shift. There is no evidence of enhancing mass lesion on the angiogram phase images. The ventricles, sulci, and cisterns are prominent secondary to visual changes. No extra-axial fluid collection is seen. Mineralization is noted in the basal ganglia. A small chronic lacunar infarct is noted in the left cerebellar hemisphere. Thoracic aorta: Visualized portions of the thoracic aorta are normal in caliber. The aortic arch demonstrates standard 3-vessel anatomy. Right carotid arterial system: The right common carotid artery is widely patent, as are the right internal and external carotid arteries. Calcified plaque is seen in the carotid bulb. Left carotid arterial system: The left common carotid artery is widely patent, as of the left internal and external carotid arteries. Mild calcified plaque is noted in the carotid bulb. Vertebral arteries: The vertebral arteries are widely patent bilaterally and codominant. Subclavian arteries: Patent bilaterally Atherosclerotic plaque is noted left subclavian artery below the thoracic outlet. Intracranial vasculature: There is moderate atherosclerotic calcification of the cavernous carotid arteries. The internal carotid arteries are patent at the skull base, as are the anterior and middle cerebral arteries bilaterally. The vertebrobasilar system and posterior cerebral arteries are patent. The vertebral arteries are codominant. There is no aneurysm, high-grade stenosis, or focal vessel cut off seen throughout the intracranial circulation. Jugular veins: Patent bilaterally. Dural sinuses: Patent. Lung apices: Partially visualized upper lobe lung parenchyma appears clear. Soft tissues: The visualized pharyngeal soft tissues are normal in appearance noting angiographic phase technique. The oropharyngeal airway appears widely patent. A calcified sialolith is noted in the left parotid gland. The salivary and thyroid glands are otherwise normal in appearance. No cervical lympha denopathy is seen. Skeletal structures: The skeletal structures are osteopenic. The calvarium appears intact. The cervical spine is maintained noting mild multilevel spondylosis. No lytic or blastic lesion is seen. Orbits: The bony orbits are intact. Orbital contents are normal as visualized noting bilateral ocular lens implants. Sinuses and mastoids: There is trace mucosal thickening within the maxillary antra. A 2.3 cm retention cyst is noted on the right. The remaining paranasal sinuses are clear. The mastoid air cells are well pneumatized. IMPRESSION: 1. A subacute left occipital lobe infarct is again noted. 2. No additional foci of acute ischemia are suspected. There is no hemorrhage or midline shift. 3. Unremarkable CT angiogram of the brain. 4. Unremarkable CT angiogram of the neck. ACT 112: Negative or not required by law. Electronically signed by: Ousmane Odonnell M.D. 04/17/2023 2:17 PM Neck CTA 04/17/23 11:[address] OF THE BRAIN; CT ANGIOGRAM OF THE BRAIN; CT ANGIOGRAM OF THE NECK CLINICAL HISTORY: Bilateral visual field deficit. Loss of balance. COMPARISON STUDY: MRI of the brain dated 04/17/2023. TECHNIQUE: Unenhanced axial CT scan of the brain is performed. Subsequently, following the IV administration of 109 of [address] 320, CT angiogram of the head and neck was performed from the aortic arch to the vertex. Images are reviewed in the axial, sagittal, and coronal planes. 3-D MIPS images are created and assessed. IV contrast was administered without complication. All measurements were calculated based on NASCET criteria. A dose lowering technique was utilized adhering to the principles of ALARA. CT DOSE: 1132.55 mGy.cm FINDINGS: Brain parenchyma: There is age-related involutional change noting mild subcortical and periventricular microcatheter hepatic disease. Loss of lópez- white matter differentiation is again seen in the left occipital lobe consistent with a subacute infarct. This water's better assessed on today's MRI. No additional foci of acute ischemia are suspected. There is no hemorrhage or midline shift. There is no evidence of enhancing mass lesion on the angiogram ph ase images. The ventricles, sulci, and cisterns are prominent secondary to visual changes. No extra-axial fluid collection is seen. Mineralization is noted in the basal ganglia. A small chronic lacunar infarct is noted in the left cerebellar hemisphere. Thoracic aorta: Visualized portions of the thoracic aorta are normal in caliber. The aortic arch demonstrates standard 3-vessel anatomy. Right carotid arterial system: The right common carotid artery is widely patent, as are the right internal and external carotid arteries. Calcified plaque is seen in the carotid bulb. Left carotid arterial system: The left common carotid artery is widely patent, as of the left internal and external carotid arteries. Mild calcified plaque is noted in the carotid bulb. Vertebral arteries: The vertebral arteries are widely patent bilaterally and codominant. Subclavian arteries: Patent bilaterally Atherosclerotic plaque is noted left subclavian artery below the thoracic outlet. Intracranial vasculature: There is moderate atherosclerotic calcification of the cavernous carotid arteries. The internal carotid arteries are patent at the skull base, as are the anterior and middle cerebral arteries bilaterally. The vertebrobasilar system and posterior cerebral arteries are patent. The vertebral arteries are codominant. There is no aneurysm, high-grade stenosis, or focal vessel cut off seen throughout the intracranial circulation. Jugular veins: Patent bilaterally. Dural sinuses: Patent. Lung apices: Partially visualized upper lobe lung parenchyma appears clear. Soft tissues: The visualized pharyngeal soft tissues are normal in appearance noting angiographic phase technique. The oropharyngeal airway appears widely patent. A calcified sialolith is noted in the left parotid gland. The salivary and thyroid glands are otherwise normal in appearance. No cervical lymphadenopathy is seen. Skeletal structures: The skeletal structures are osteopenic. The calvarium appears intact. The cervical spine is maintained noting mild multilevel spondylosis. No lytic or blastic lesion is seen. Orbits: The bony orbits are intact. Orbital contents are normal as visualized noting bilateral ocular lens implants. Sinuses and mastoids: There is trace mucosal thickening within the maxillary antra. A 2.3 cm retention cyst is noted on the right. The remaining paranasal sinuses are clear. The mastoid air cells are well pneumatized. IMPRESSION: 1. A subacute left occipital lobe infarct is again noted. 2. No additional foci of acute ischemia are suspected. There is no hemorrhage or midline shift. 3. Unremarkable CT angiogram of the brain. 4. Unremarkable CT angiogram of the neck. ACT 112: Negative or not required by law. Electronically signed by: Ousmane Odonnell M.D. 04/17/2023 2:17 PM Medications Administered Discontinued Medications Dexamethasone Sodium Phosphate (DexamethasonePf 10 Mg/Ml Vial) 10 mg IV NOW ONE Stop: 04/17/23 14:10 Last Admin: 04/17/23 14:24 Dose: 10 mg Documented By: RSL Ioversol (Optiray 320 500ml) 109 ml IV ONCE ONE Stop: 04/17/23 14:01 Last Admin: 04/17/23 13:55 Dose: 109 ml Documented By: MARNI Code Status & VTE Plan VTE Prophylaxis Plan VTE Prophylaxis will be ordered: Yes (2) Peripheral visual field defect Laterality: right Qualified Code(s): H53.451 - Other localized visual field defect, right eye
[2023-04-17] MEDS ORDERED: ASPIRIN CHEW 324 MG PO STA (17:29)
[2023-04-17] MEDS ORDERED: PHARMACIST DISCHARGE MED REC CONSULT PRN (19:59)
[2023-04-17] MEDS ORDERED: ACETAMINOPHEN 325 MG TAB PO PRN (19:59)
[2023-04-17] MEDS ORDERED: LATANOPROST 0.005% OP SOLN 2.5 ML BTL OP SCH (21:00)
[2023-04-18 06:54] LABS: Basophils # (auto) 0.01 K/uL (0-0.2); Basophils % (auto) 0.1 %; Hematocrit (blood only) 39.4 % (42.0-52.0); Hemoglobin 13.9 g/dl (14.0-18.0); Immature Granulocytes # (auto) 0.04 K/uL (0.01-0.20); Immature Granulocytes % (auto) 0.5 %; Lymphocytes # (auto) 0.94 K/uL (1.2-3.4); Lymphocytes % (auto) 10.7 %; Mean Corpuscular Hemoglobin 32.1 pg (25.0-34.0); Mean Corpuscular Hgb Conc 35.3 g/dL (32.0-36.0); Mean Platelet Volume 11.8 fL (9.4-12.4); Monocytes # (auto) 0.57 K/uL (0.11-0.59); Monocytes % (auto) 6.5 %; Neutrophils # (auto) 7.24 K/uL (1.40-6.50); Neutrophils % (auto) 82.2 %; Platelet Count 173 K/uL (130-400); RDW Coefficient of Variation 12.1 % (11.5-14.5); RDW Standard Deviation 40.4 fL (36.4-46.3); Red Blood Count 4.33 M/uL (4.70-6.10)
[2023-04-18 07:11] LABS: BUN Creatinine Ratio 25.9 (10-20); Calcium 8.6 mg/dl (8.6-10.3); Chol HDL Ratio 2.7 (0-5); Creatinine Clr Calc Pharmacy 71.1 ml/min; Est GFR (Non-African American) 84.5 ml/min; Potassium 4.3 mmol/L (3.5-5.1)
[2023-04-18 08:53] LABS: Estimated Average Glucose 114 mg/dl; Hemoglobin A1C 5.6 % (4.5-5.6)
[2023-04-18] MEDS ORDERED: NON-FORMULARY MEDICATION (Saw Palmetto 500 mg Capsule) PO SCH (09:00)
[2023-04-18] MEDS ORDERED: ASPIRIN 81 MG ECTAB PO SCH (09:00)
[2023-04-18] MEDS: MULTIVITAMIN TAB PO SCH ×2 (09:01→09:09)
--- NOTE | 2023-04-18 09:48 | Neurology Consultation ---
Date of Consultation April 18, 2023 Assessment & Plan (1) Occipital stroke: (2) Homonymous hemianopsia: Plan patient suffered a significant left occipital stroke creating a right homonymous hemianopsia. This is likely ischemic in nature and CT angiography of the head neck showed no other vascular anomalies. Echocardiogram is pending. He does have a history of some nonspecific cardiac issues but there is no history of atrial fibrillation. The MRI showed edema and I cannot entirely exclude A small underlying tumor He has no other neurologic deficits. The MRI showed extensive old small vessel ischemic disease and he has risk factors including some hypertension. Recommendations: 1. agree with 81 mg aspirin tablet daily. 2. There is no indication for anticoagulation 3. MRI of the brain with contrast to rule out small underlying left occipital tumor. 4. otherwise, there are no further recommendations of testing or treatment although echocardiogram is pending. 5. I can follow up as an outpatient. Overall, I spent a total of 75 minutes with this case including review of records, review of MRI films, report generation, direct evaluation the patient, and discussion of the case with the patient at bedside and Dr. Phelps including differential diagnosis and treatment options. History of Present Illness Reason for Consultation: patient is a 77-year-old, who I was asked to see at the request of Esme Guo PA-C, for neurologic consultation regarding stroke. Requesting Physician: Esme Guo PA-C Attending Physician: Belen Phepls MD History of Present Illness this patient has a history of some cardiac issues including bundle branch block as well as some headaches over the last few years, since he had a C5 disc issue. He is on no significant medications. patient has been having intermittent right occipital and occipito-cervical junction headaches recently. Sometime around April 13 he noted some visual issues , not being able to see off to the right. This was noticeable April 14 and he felt that it had something to do with his eyes. He went on a 20 mi bike ride on April 15 (very hot day ). He noted the headache was getting worse and he noted the vision loss to the right was possibly a little more prominent. He had a ride directly behind his friend as he could not see off to the right. He wondered if it would improve and ended up seeing an eye doctor April 17. He had visual field defects to the right and came to the emergency room. In addition, the patient was having some slight sensations of being off balance although he was not falling. It was perhaps a little bit vertiginous as well. On April 17 he arrived at 10:11 a.m. with a temperature 36.5, pulse 55 and regular, respiratory rate 16, blood pressure 176/84 (mean arterial pressure 114) and O2 saturation 98%. His neurologic examination was nonfocal but he could not see off to the right. CT scan of the head showed a subacute right occipital lesion. CT angiography of the head and neck were unremarkable without any vascular stenoses or anomalies. Chest x-ray was unremarkable. MRI of the brain showed a subacute left occipital stroke of a rather large size with edema. In addition, there was extensive old small vessel ischemic disease present. CBC and Chem profile were largely unremarkable. TSH was elevated at 5.3. The patient has had no further issues since admission and this morning complains of reason a mild occipital headache ( improved from previous). Hemoglobin A1c was 5.6, triglycerides 56 and total cholesterol 187. He is afebrile this morning and blood pressure is 126/62 Allergies Allergy/AdvReac Type Severity Reaction Status Date / Time No Known Allergies Allergy Mild Verified 04/17/23 15:16 Home Medications Medication Instructions Recorded Confirmed Type cholecalciferol (vitamin D3) 25 1,000 unit PO QDL 02/04/19 04/17/23 History mcg (1,000 unit) tablet (Vitamin D3) multivitamin 1 tab PO QAM 02/04/19 04/17/23 History saw palmetto 500 mg capsule 500 mg PO QAM 02/04/19 04/17/23 History latanoprost 0.005 % eye drops 1 drp ophthalmic (eye) PM 09/07/20 04/17/23 History Patient History Medical History Aortic root dilatation BPH (benign prostatic hyperplasia) Cervical disc disease GERD without esophagitis Inguinal hernia possibly on left Mitral regurgitation Pancreas cyst "BENIGN" Primary open angle glaucoma Surgical History History of esophagogastroduodenoscopy (EGD) History of left cataract surgery History of tooth extraction Hx of cholecystectomy Hx of colonoscopy with polypectomy Hx of inguinal hernia repair Hx of tonsillectomy Family History Father Coronary heart disease Mother Coronary heart disease Social History Smoking Status: Never smoker Second Hand Exposure: No; Do You Dip or Chew Tobacco: No; Tobacco Cessation Education Requested by Patient: No Hx Alcohol Use: No Hx Substance Use: No Preferred Language: Chinese Communication Ability: Effective Visual Impairment: No Limitations Electric Meter Tester Required: No Beliefs That Will Affect Care: None Current Living Situation: Spouse current occupational status: retired 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 Other Information That Helps Us Care for You: No Feels Safe at Home: Yes Safety Concerns: Feels Safe At This Time Diet: vegetarian Assistive Devices: Glasses Review of Systems Constitutional: no fever, no fatigue and no weakness Eyes: + loss of peripheral vision; no diplopia, no eye pain and no worsening vision Ear, Nose, Mouth, Throat: no ear pain, no tinnitus, no hearing loss, no dizziness, no snoring, no hoarseness and no dysphagia Respiratory: no cough and no dyspnea Cardiovascular: no chest pain, no palpitations and no lightheadedness Gastrointestinal: no abdominal pain, no nausea and no vomiting Musculoskeletal: no back pain, no neck pain, no radicular pain, no joint pain and no myalgia Integumentary: no rash and no lesions Neurologic: + headache(s); no gait abnormality, no localized weakness, no generalized weakness, no tingling, no numbness, no tremor(s), no abnormal movements, no abnormal speech, no confusion and no memory loss Psychiatric: no depression, no irritability, no anxiety, no difficulty concentrating, no confusion and no hallucinations Endocrine: no fatigue and no flushing Hematologic / Lymphatic: no easy bleeding and no easy bruising Allergy / Immunological: no urticaria and no problem reported Exam (Neuro) Physical Exam: The patient is right-handed. The patient is awake, alert, and attentive. Speech is normal without any aphasia or dysarthria. The patient can name objects, repeat phrases, and has normal spontaneous speech. Mentation and thought processes are intact, with orientation to person, place and time, and normal fund of knowledge. Attention and concentration are normal. Mood and affect are normal and appropriate. General appearance and grooming are normal. Short and long-term memory are intact. Pupils are 4 mm bilaterally and reactive to light. Extraocular eye muscles are intact without nystagmus. The patient had decreased visual lowery to the right in each eye towards midline. There are no deficits to sensation in the face in all 3 distributions of the fifth cranial nerve bilaterally. Corneal reflexes are positive bilaterally. Facial strength and symmetry was normal bilaterally. Hearing seems normal bilaterally. Palate moves well without asymmetry. There is normal sternocleidomastoid and trapezius (shoulder shrug) strength bilaterally. Tongue is midline with good strength bilaterally. Neck has a full range of motion without discomfort. There are no cervical bruits bilaterally. There are no cranial or ocular bruits. Heart is without murmur. There is a regular rhythm and rate. Cervical, thoracic, and lumbar spine are nontender to palpation. Gait is narrow based, with good arm swing, turns, and stance. With outstretched arms there is no drift. There are no resting, postural, or action tremors. There is no ataxia with finger to nose testing. There is good facility in the hands. No other abnormal involuntary movements are noted. Motor strength is 5/5 diffusely in the arms bilaterally including deltoids, biceps, triceps, brachioradialis, wrist flexors and extensors, event specialist, and intrinsic hand muscles. Motor strength is 5/5 diffusely in the legs bilaterally including hip flexors, quadriceps, hamstrings, gastrocnemius, tibialis anterior, tibialis posterior, and Peroneii muscles. Toe extensors are normal and there is good bulk in the extensor digitorum brevis muscles bilaterally. The limbs have good tone without rigidity or spasticity. There is no atrophy noted in the muscles. Muscle bulk is normal, there is no tenderness to palpation, no myotonia to percussion, and no fasciculations seen. Sensory examination is intact to touch and pin throughout all 4 limbs diffusely. Reflexes are 2/4 in the biceps, triceps, brachioradialis, quadriceps, and Achilles tendons bilaterally. There is no clonus bilaterally. Toes are downgoing with plantar stimulation bilaterally. Peripheral pulses are present and of normal quality distally in all 4 limbs. There is no peripheral edema noted in the limbs. Results & Data Vital Signs (Past 12 Hours) Vital Signs Temp Pulse Pulse Resp BP Pulse Ox O2 Del Method 04/18/23 00:00 60 04/18/23 02:57 36.8 C 76 18 126/62 98 Room Air 04/17/23 23:41 36.8 C 62 18 113/60 96 Room Air PG Care Time/CCT Total # of Minutes Spent Total Time Spent with Patient: Total time spent is greater than 50% in coordination of care (as documented) at patient's floor/unit and/or counseling patient: Coding Level of Care Code 21014 INT INP/OBS CARE 3/75MIN Diagnoses Occipital stroke I63.9 Homonymous hemianopsia H53.469
[2023-04-18] MEDS ORDERED: CHOLECALCIFEROL 1,000 UNITS 25 MCG TAB PO SCH (11:30)
[2023-04-18] MEDS ORDERED: GADOBUTROL 65ML VIAL IV ONE (14:19)
--- NOTE | 2023-04-18 15:00 | Magnetic Resonance Report ---
MRI OF THE BRAIN COMBO CLINICAL HISTORY: Visual changes. COMPARISON STUDY: CT of the brain dated 04/17/2023. TECHNIQUE: MRI of the brain was performed utilizing various T1 and T2-weighted sequences in the axial , sagittal, and coronal planes. Contrast-enhanced sequences were acquired following the administratio n of 6.5 cc of Gadavist. FINDINGS: Brain parenchyma: There is restricted diffusion from an evolving left FIELD EXAMINER territory infarct with surr ounding edema. No new foci of restricted diffusion are seen on today's examination. There is age-rela tima involutional change that to [id number]-ihxdxcen subcortical and periventricular microangiopathic dis ease. There is no hemorrhage or midline shift. There are foci of nonspecific gyriform enhancement wit hin the infarct involving left occipital lobe. Chronic lacunar infarcts are noted in the left cerebel lar hemisphere. No extra-axial fluid collection is seen. The cerebellar tonsils are normal in configu ration. Ventricles, sulci, and cisterns: Prominent secondary to involutional change. Pituitary and sella: Unremarkable. Intracranial vasculature: Normal flow voids are maintained at the skull base. Orbits: The bony orbits are grossly intact. Orbital contents are normal in appearance blunting bilate ral ocular lens implants. Sinuses and mastoids: Clear. Calvarium: Unremarkable. Cervical cord: Partially visualized cervical spinal cord is normal in morphology and signal intensity . IMPRESSION: 1. Large subacute/evolving left FIELD EXAMINER territory infarct with associated edema. 2. No new foci of ischemia are identified. 3. There is no hemorrhage or midline shift. 4. There is nonspecific gyriform enhancement within the infarcting left occipital lobe. This is almos t certainly related to subacute ischemia. An underlying mass lesion is considered much less likely. A follow-up contrast-enhanced MRI of the brain is recommended in 3-4 weeks time for reevaluation. ACT 112: Negative or not required by law. Electronically signed by: Ousmane Odonnell M.D. 04/18/2023 2:59 PM
[2023-04-18] MEDS ORDERED: STROKE PATIENT DISCHARGE STA (15:45)
--- NOTE | 2023-04-18 15:49 | Discharge Summary ---
Date of Service April 18, 2023 Admission HPI Per Admitting Provider This is a 77-year-old male who has significant past medical history of aortic root dilatation, mild mitral regurgitation, GERD, BPH, cervical DDD, and bilateral primary open-angle glaucoma who presents to ED secondary to visual changes for several days. Over the last two weeks, he has noticed issues with his balance, specifically hitting his right side when he was going around corners in his apartment. Over the weekend, he noted a right visual field defect which he initially thought was due to know open angle glaucoma so made an appt with optometry today. When he was seen by optometry today, they noted bilaterally visual field deficits so referred to the ED. Patient has noticed the right periphery of his eye seem to be worse. He does not notice any deficit to his left eye although it was noted on outpatient exam today. He denies any prior history of stroke or TIA. He has also noted a posterior headache for the last several days, which he attributed to known cervical disc disease. However, in hindsight, he thinks this may also have been related to the vision deficits and balance issues. In the ED, patient remained hemodynamically stable. Initial head CT concerning for subacute left occipital lobe infarct. He underwent CTA of head and neck which was unremarkable. Brain MRI was performed which revealed left occipital lobe infarct with associated cytotoxic edema measuring up to 5.8 cm in greatest dimension. The appearance of his infarct is likely less than 2 weeks old with subtle areas of laminar necrosis/petechial hemorrhage. Involutional change of chronic microvascular ischemic disease is also noted. Chronic subcentimeter left cerebellar lacunar infarct also noted. At baseline, he is extremely active - went for a 20 mile bike ride over the weekend, walks two miles a day. He is a vegetarian, eats healthy. Denies smoking, alcohol. Echo Oct 2022 - LVEF 60-64% with normal wall motion; mild LAE, grade I LV diastolic dysfunction; mild aortic valve sclerosis but no aortic stenosis; focal thickening of anterior MV leaflet with mild MR but no MS; mild TR. Admission Exam Per Admitting Provider Constitutional: well developed and well nourished; no acute distress Eyes: + anicteric sclerae, PERRL and EOM intact bilaterallyright peripheral visual field deficit - LQ > UQ ENMT: external ear and nose normal, oropharynx normal Neck: trachea midline Respiratory: no respiratory distress and no labored breathing Auscultation: lungs clear to auscultation bilaterally; no rales, no rhonchi and no wheezes Cardiovascular: Rate/Rhythm: regular rate and regular rhythm Heart Sounds: + murmur Vessels: dorsalis pedis pulses present and radial pulses present Extremities: no pedal edema Gastrointestinal (Abdomen): Inspection/Auscultation: normal bowel sounds; abdomen not distended Percussion/Palpation: abdomen soft; abdomen nontender Musculoskeletal: Head/Neck/Chest: normocephalic, head atraumatic and neck supple Skin: no jaundice Neurologic: moves all extremities; no focal motor deficits and not confused Speech / Cognition: normal speech Motor/Sensory: no tremor Cranial Nerves: PERRL, normal accommodation, EOM intact bilaterally, normal facial strength, tongue midline, able to rotate head bilaterally and able to elevate shoulders bilaterally Psychiatric: A+Ox3, euthymic affect Principal Diagnosis Occipital stroke Discharge Exam GENERAL: Alert and oriented x3. NAD, on RA. HEENT: No pallor, no icterus. Pupils equal, round and reactive to light. Oral mucosa moist. decreased visual lowery to right b/l eyes. NECK: No JVD, no neck masses. HEART: S1 and S2 heard. Regular rate and rhythm. No murmur, no gallop. RESPIRATORY SYSTEM: Normal AP diameter. No accessory muscle use. No wheezing, no crackles. ABDOMEN: Soft, bowel sounds present, nontender, no distention. CENTRAL NERVOUS SYSTEM: No facial droop. Speech is clear. Obeys simple commands. Moves extremities. EXTREMITIES: No edema, no erythema seen. Discharge Data Allergies Allergy/AdvReac Type Severity Reaction Status Date / Time No Known Allergies Allergy Mild Verified 04/17/23 15:16 Consultations 04/17/23 16:29 ED Decision to Admit Stat 04/17/23 19:59 Consult Neurology Routine Ordered Studies 04/17/23 11:07 CT angio head w con Stat CT angio neck with con Stat CT head/brain wo con Stat MR brain wo con Stat 04/18/23 11:45 MRI Brain [MR brain wo/w con] Routine Hospital Course (1) Homonymous hemianopsia: (2) Occipital stroke: Plan 77-year-old male who presented with visual changes for several days with associated difficulties with balance and posterior headache was evaluated in the ED and was found to have occipital stroke and homonymous hemianopsia. Passed swallow screen, no problems with swallowing food. Imagings reviewed, MRI with and without contrast of the brain was done, tumor was not 100% ruled out but was considered less likely per imaging. Patient to follow-up with neurologist in 3 weeks time for evaluation/possible repeat MRI with and without contrast of the brain. Patient is aware about it. Patient is started on aspirin and statin, patient was initially reluctant on starting on statin, after counseling, patient agreed to statin. Patient reports feeling better and is hemodynamically stable and would like to go home. Patient being discharged to home with following instruction at the point of discharge: Follow-up with your primary care physician within a week time and likely you will need labs CBC/CMP/magnesium/phosphorus. Because of your stroke, you were started on aspirin and statin. As discussed, Follow-up with your neurologist in 3 to 4 weeks time, likely you will need evaluation for repeat MRI of the brain with contrast to rule out any tumor. Take your medications as prescribed. Please make sure that you are able to get your medications today by calling your pharmacy before you leave the hospital so that your treatment continuity is not broken. Home Health Attestation I certify that this patient is under my care and that I, or a physicians property management assistant working with me, had a face to-face encounter that meets the home health urbw-oi-rfeo encounter requirements with this patient. The encounter with the patient was in whole, or in part, for the following medical condition, which is the primary reason for home health care (list medical condition): I certify that, based on my findings, the following services are medically necessary home health services: My clinical findings support the need for the above services because: Further, I certify that my clinical findings support that this patient is homebound (i.e. absences from home require considerable and taxing effort and are for medical reasons or bahai services or infrequently or of short duration when for other reasons) because: Certification for Home Health Services: Based on the above findings, I certify that this patient is confined to the home and needs intermittent half-way care, physical therapy and/or speech therapy or continues to need occupational therapy. The patient is under my care, and I have initiated the establishment of the plan of care. This patient will be followed by a physician who will periodically review the plan of care. Total Time Total Time Spent Total Time Spent (In Minutes): 45 Discharge Plan Discharge Items Patient Disposition: Home - Self-Care Reason For Visit: CVA Discharge Diagnosis: Occipital stroke Homonymous hemianopsia Activity: Resume your previous activity Non-emergency contact: Primary Care Provider Call non-emergency contact if: you have any medication questions Follow-up/Referrals: Murphy Craig, DO [Primary Care Provider] - (Dr Craig's office will be reaching out to you with a follow up appointment.) Diet: Heart Healthy Addtl Attending Provider Instructions: Follow-up with your primary care physician within a week time and likely you will need labs CBC/CMP/magnesium/phosphorus. Because of your stroke, you were started on aspirin and statin. As discussed, Follow-up with your neurologist in 3 to 4 weeks time, likely you will need evaluation for repeat MRI of the brain with contrast to rule out any tumor. Take your medications as prescribed. Please make sure that you are able to get your medications today by calling your pharmacy before you leave the hospital so that your treatment continuity is not broken. Pending Studies at Discharge: No Stand-Alone Forms: My [facility] [employer], Smoking Cessation Medications and DC Order Prescriptions: New atorvastatin 40 mg Tablet 40 mg PO HS Qty: 30 0RF aspirin 81 mg Tablet,Delayed Release (Dr/Ec) 81 mg PO QAM Qty: 30 0RF Continued latanoprost 0.005 % Drops 1 drp OPHTHALMIC (EYE) PM multivitamin Tablet 1 tab PO QAM cholecalciferol (vitamin D3) [Vitamin D3] 1,000 unit Tablet 1,000 unit PO QDL Discontinued saw palmetto 500 mg Capsule 500 mg PO QAM Discharge Orders: Discharge Order (Routine); Ordered 04/18/23 Ordered By: Belen Phelps Admission Data Admit Date/Time: 04/17/23 16:48 Attending Provider: Belen Phelps Admit Provider: Viri Ramos Primary Care Provider: Murphy Craig Other Providers: Viri Ramso ; Stephen Pretty
[2023-04-18] MEDS ORDERED: LATANOPROST 0.005% OP SOLN 2.5 ML BTL OPB SCH (21:00)
[2023-04-18] MEDS ORDERED: ATORVASTATIN 40 MG TAB PO SCH (21:00)
--- NOTE | 2023-04-19 05:28 | Electrocardiogram Report ---
Test Reason : Blood Pressure : / mmHG Vent. Rate : 051 BPM Atrial Rate : 051 BPM P-R Int : 170 ms QRS Dur : 092 ms QT Int : 450 ms P-R-T Axes : 063 -55 036 degrees QTc Int : 414 ms Sinus bradycardia Incomplete right bundle branch block Left anterior fascicular block Abnormal ECG When compared with ECG of 17-AUG-2012 17:20, Nonspecific T wave abnormality no longer evident in Lateral leads Confirmed by Mukesh Arnold ([id number]) on 04/19/2023 5:27:48 AM Referred By: REFERRED SELF Confirmed By:Mukesh Arnold
--- NOTE | 2023-04-20 11:24 | Pharmacy Report ---
Pharmacist Stroke Counseling - Date of Service April 20, 2023 - Scope: Pharmacy has been consulted to provide medication discharge counseling for this patient admitted with ischemic stroke as per the Pharmacist Discharge Counseling for Stroke Patients Protocol. - Medications on Discharge: Home Medications Medication Instructions Recorded Confirmed cholecalciferol (vitamin D3) 25 1,000 unit PO QDL 02/04/19 04/17/23 mcg (1,000 unit) tablet (Vitamin D3) multivitamin 1 tab PO QAM 02/04/19 04/17/23 latanoprost 0.005 % eye drops 1 drp ophthalmic (eye) PM 09/07/20 04/17/23 New Rx's Medication Instructions Recorded aspirin 81 mg tablet,delayed 81 mg PO QAM #30 tabs 04/18/23 release atorvastatin 40 mg tablet 40 mg PO HS #30 tabs 04/18/23 - Action: The above medications, specifically ones for stroke treatment/prophylaxis, have been reviewed in detail with the patient and/or patient housing management representative(s) prior to discharge. This includes indication, common adverse reactions, drug interactions, and medication administration. Medication counseling has been employed using the teach-back method to ensure understanding. - Outcome: The patient and/or patient housing management representative(s) have demonstrated understanding of the medications. 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 He does not have any medication questions at this time. He does report an issue with getting on the [facility] patient portal. Encouraged him to fill out the online portal technical issue form and to call the number provided. He reports he has done this and not received a call back. I did attempt to call the same line to possibly see if they had him in the workflow without a response. Thank you for allowing pharmacy to be involved in the care of this patient. Please call [phone] with any additional questions
== END 2023-04-18 16:38 | disposition home or self-care (01) | DRG 64 ==
LOC: ED 10:10 → 2S 16:48 → SUATTDRO 16:48 → 2S 18:06